=== PATIENT | female | born 1975 | race Caucasian/White ===

== ENCOUNTER 2018-05-11 10:49 | Emergency (ER) | END 2018-05-11 13:46 | disposition home or self-care (01) ==

== ENCOUNTER 2018-08-19 23:12 | Emergency (ER) | payer OTHER ==
[~2018-08-19] VITALS: Ht 170.2 cm; Wt 98.8 kg
[~2018-08-19 23:12] MED LIST: IBUP-1542 PO
[2018-08-19 23:17] VITALS: Ht 170.2 cm; Wt 98.8 kg
[2018-08-20] MEDS ORDERED: PROMETHAZINE/DM (CUP) PO ONE (02:30)
[2018-08-20] MEDS ORDERED: CETI10CA PO (04:18)
[2018-08-20] MEDS ORDERED: ALBU18HF INHALATION (04:18)
[2018-08-20] MEDS ORDERED: BENZ-6 PO (04:18)
--- NOTE | 2018-08-20 04:23 | ERD ---
ER Documentation Chief Complaint Chief Complaint flu-liked symptoms x 3weeks HPI 42-year-old female patient with no severe past medical history presents the ED complaining of a cough that started 3 weeks ago. She reports that she has tried taking ibuprofen, Tylenol, equally lvrf-yzw-uhwtlyy cough medication however has not found relief of her symptoms. Patient also reports that she has some rhinorrhea. Denies any fever, chills, nausea, vomiting, diarrhea, neck stiffness, wheezing. Denies any sick contacts. Denies any recent travel. Denies taking control. Denies smoking, alcohol use, drug use. ROS All systems reviewed and are negative except as per history of present illness. Medications Home Meds Active Scripts Cetirizine Hcl* (Zyrtec*) 10 Mg Capsule, 10 MG PO DAILY, #10 TAB.CHEW Prov:CHRISTOPHER PULIDO PA-C 08/20/18 Albuterol Sulfate* (Ventolin HFA*) 18 Gm Hfa.aer.ad, 2 PUFF INHALATION Q4H, #1 INHALER Prov:CHRISTOPHER PULIDO PA-C 08/20/18 Benzonatate* (Tessalon Perle*) 100 Mg Capsule, 100 MG PO Q8H PRN for COUGH, #20 CAP Prov:CHRISTOPHER PULIDO PA-C 08/20/18 Ibuprofen* (Motrin*) 600 Mg Tab, 600 MG PO Q6, #30 TAB Prov:YARI MARTINEZ PA-C 05/11/18 Allergies Allergies: Coded Allergies: No Known Allergy (Unverified , 08/19/18) PMhx/Soc Medical and Surgical Hx: pt denies Medical Hx, pt denies Surgical Hx Hx Alcohol Use: Yes Hx Substance Use: No Hx Tobacco Use: Yes Smoking Status: Current some day smoker FmHx Family History: No diabetes, No coronary disease Physical Exam Vitals Vital Signs Date Temp Pulse Resp B/P (MAP) Pulse Ox O2 O2 Flow FiO2 Time Delivery Rate 08/19/18 98.8 85 20 100/60 99 23:17 (73) Physical Exam Const: Ohy-qsv-[id number], well-nourished. In no acute distress. Head: Atraumatic, normocephalic Eyes: Normal Conjunctiva without injection. No purulent discharge. PERRL. EOMI ENT: Normal external ear. Ear canal without erythema. Tympanic membrane pearly birch without effusion or bulging. Nasal canal clear with normal turbinates. Moist oropharynx without tonsillar exudates. Non-erythematous pharynx. Uvula midline. No drooling. No trismus. Neck: Full range of motion. No meningismus. No cervical lymphadenopathy. Resp: Clear to auscultation bilaterally. No wheezing, rhonchi, rales, or crackles. No accessory muscle use. No retractions. Cardio: Regular rate and rhythm. No murmurs, rubs or gallops. Abd: Soft, non tender, non distended. Normal bowel sounds. No palpable masses. No rebound tenderness. No guarding. Skin: No petechiae or rashes Back: No midline tenderness. No CVA tenderness. Ext: No cyanosis, or edema. Neur: Awake and alert. Psych: Normal Mood and Affect Results 24 hrs Laboratory Tests Test 08/20/18 02:42 POC Beta HCG, Qualitative NEGATIVE Current Medications Medications Dose Sig/Ruben Start Time Status Last (Trade) Ordered Route PRN Stop Time Admin Dose Reason Admin Promethazine 5 ml ONCE ONCE 08/20/18 DC 08/20/18 HCl/ PO 02:30 08/20/18 02:40 Dextromethorp 02:31 bartlett (Phenergan-Dm ) Procedures/MDM 42-year-old female patient with no significant past medical history presents to ED complaining of cough, rhinorrhea. She is afebrile and nontoxic-appearing. Chest x-ray was ordered to further evaluate that she has had symptoms for 3 weeks. Patient was also given Promethazine DM here in the ED. Patient reports that she has slight relief, for a trial of Tessalon Perles will be prescribed to patient on outpatient basis. Patient has a pulse oxygenation of 99%. Patient is speaking full sentences without any respiratory distress. This patient presents to the ED with symptoms consistent with a viral acute upper respiratory infection. Patient is afebrile and has normal vital signs. Patient's physical exam include lungs which were clear to auscultation and a normal pulse oximetry. There is a low suspicion for a croup, pneumonia, pneumothorax, strep pharyngitis, otitis media, otitis externa, sinusitis, peritonsillar abscess, foreign body aspiration, mastoiditis, retropharyngeal abscess, epiglottitis, meningitis, sepsis or other emergent conditions. Diagnosis: Cough Discharge medications: Zyrtec, Tessalon Perles, Ventolin Follow up with primary care physician in 1-2 days. Instructed patient to return to the ED sooner for any worsening symptoms. Patient's questions were answered. Patient is hemodynamically stable. Patient understood and agreed with discharge plan. Patient discharged stable. Disclaimer: Inadvertent spelling and grammatical errors are likely due to EHR/dictation software use and do not reflect on the overall quality of patient care. Also, please note that the electronic time recorded on this note does not necessarily reflect the actual time of the patient encounter. Departure Diagnosis: Primary Impression: Cough Condition: Stable Patient Instructions: Uri, Viral, No Abx (Adult) Referrals: [facility] YOU HAVE RECEIVED A MEDICAL SCREENING EXAM AND THE RESULTS INDICATE THAT YOU DO NOT HAVE A CONDITION THAT REQUIRES URGENT TREATMENT IN THE EMERGENCY DEPARTMENT. FURTHER EVALUATION AND TREATMENT OF YOUR CONDITION CAN WAIT UNTIL YOU ARE SEEN IN YOUR DOCTORS OFFICE WITHIN THE NEXT 1-2 DAYS. IT IS YOUR RESPONSIBILITY TO MAKE AN APPOINTMENT FOR FOLOW-UP CARE. IF YOU HAVE A PRIMARY DOCTOR --you should call your primary doctor and schedule an appointment IF YOU DO NOT HAVE A PRIMARY DOCTOR YOU CAN CALL OUR PHYSICIAN REFERRAL HOTLINE AT IF YOU CAN NOT AFFORD TO SEE A PHYSICIAN YOU CAN CHOSE FROM THE FOLLOWING [facility] [address] [facility]. [facility] [address] [facility]. [facility] [address] [facility] [facility] [address] [facility] [facility] [address] [facility]. [facility]. [address] [facility] [facility] YOU HAVE RECEIVED A MEDICAL SCREENING EXAM AND THE RESULTS INDICATE THAT YOU DO NOT HAVE A CONDITION THAT REQUIRES URGENT TREATMENT IN THE EMERGENCY DEPARTMENT. FURTHER EVALUATION AND TREATMENT OF YOUR CONDITION CAN WAIT UNTIL YOU ARE SEEN IN YOUR DOCTORS OFFICE WITHIN THE NEXT 1-2 DAYS. IT IS YOUR RESPONSIBILITY TO MAKE AN APPOINTMENT FOR FOLOW-UP CARE. IF YOU HAVE A PRIMARY DOCTOR --you should call your primary doctor and schedule and appointment IF YOU DO NOT HAVE A PRIMARY DOCTOR YOU CAN CALL OUR PHYSICIAN REFERRAL HOTLINE AT . IF YOU CAN NOT AFFORD TO SEE A PHYSICIAN YOU CAN CHOSE FROM THE FOLLOWING [facility] INSTITUTIONS: [facility] [address] [place] [address] [facility] [address] [place], [place] [id number] [place] [address] [address] [place] [address] [facility] URGENT CARE/SPECIALTIES Additional Instructions: Llame al doctor MAANA y janette arlene NAMITA PARA DENTRO DE 2-3 SANCHEZ.Dgale a la secretaria que nosotros le instruimos hacer esta namita.Avise o llame si mohr condicin se empeora antes de la namita. Regresa aqui si peor o no mejor. CHRISTOPHER PULIDO PA-C Aug 20, 2018 04:22
[2018-08-20 04:31] VITALS: BP 132/68; PULSE 74; RESP 20
== END 2018-08-20 04:32 | disposition home or self-care (01) ==
LOC: FTE 23:12
DX: R05 Cough (principal); F17.210 Nicotine dependence, cigarettes, uncomplicated
CPT/HCPCS: 71045; 81025; Z7610

== ENCOUNTER 2018-10-24 18:51 | Emergency (ER) | payer OTHER ==
[~2018-10-24] VITALS: Ht 157.5 cm; Wt 85.1 kg
[~2018-10-24 18:51] MED LIST changes: +ALBU18HF INHALATION; +BENZ-6 PO; +CETI10CA PO
[2018-10-24 19:21] VITALS: Ht 157.5 cm; Wt 85.1 kg
[2018-10-24] MEDS ORDERED: SOD CHLORIDE 0.9% 1,000 ML IV STA (21:27)
[2018-10-24] MEDS ORDERED: ONDANSETRON 4 MG INJ IV STA (21:27)
[2018-10-24] MEDS ORDERED: ONDA8TAB14 PO (22:26)
[2018-10-24] MEDS ORDERED: BISM262O23 PO (22:26)
[2018-10-24] MEDS ORDERED: AZIT500T3 PO (22:26)
--- NOTE | 2018-10-24 22:28 | ERD ---
ER Documentation Chief Complaint Chief Complaint abd pain, vomiting and diarrhea +fever x1 week HPI 42-year-old female presents with left-sided abdominal pain, vomiting diarrhea last week. She may have tactile fevers but no measured temperature. She denies any right-sided abdominal pain, urinary complaints, the diarrhea is watery without blood or mucus. Vomit is nonbilious nonbloody. Patient denies any foreign travel or suspect food or sick contacts. ROS All systems reviewed and are negative except as per history of present illness. Medications Home Meds Active Scripts Bismuth Subsalicylate* (Pepto-Bismol*) 262 Mg/15 Ml Oral.susp, 15 ML PO Q3H PRN for DIARRHEA for 4 Days, ML Prov:AZRA CHINCHILLA MD 10/24/18 Ondansetron (Ondansetron Odt) 8 Mg Tab.rapdis, 8 MG PO Q6H PRN for NAUSEA AND/OR VOMITING, #6 TAB Prov:AZRA CHINCHILLA MD 10/24/18 Azithromycin* (Zithromax*) 500 Mg Tablet, 500 MG PO DAILY for 3 Days, TAB Prov:AZRA CHINCHILLA MD 10/24/18 Cetirizine Hcl* (Zyrtec*) 10 Mg Capsule, 10 MG PO DAILY, #10 TAB.CHEW Prov:CHRISTOPHER PULIDO PA-C 08/20/18 Albuterol Sulfate* (Ventolin HFA*) 18 Gm Hfa.aer.ad, 2 PUFF INHALATION Q4H, #1 INHALER Prov:CHRISTOPHER PULIDO PA-C 08/20/18 Benzonatate* (Tessalon Perle*) 100 Mg Capsule, 100 MG PO Q8H PRN for COUGH, #20 CAP Prov:CHRISTOPHER PULIDO PA-C 08/20/18 Ibuprofen* (Motrin*) 600 Mg Tab, 600 MG PO Q6, #30 TAB Prov:YARI MARTINEZ PA-C 05/11/18 Allergies Allergies: Coded Allergies: No Known Allergy (Unverified , 10/24/18) PMhx/Soc Medical and Surgical Hx: pt denies Medical Hx, pt denies Surgical Hx Hx Alcohol Use: Yes Hx Substance Use: No Hx Tobacco Use: Yes Smoking Status: Current every day smoker FmHx Family History: No diabetes, No coronary disease, No other Physical Exam Vitals Vital Signs Date Temp Pulse Resp B/P (MAP) Pulse Ox O2 O2 Flow FiO2 Time Delivery Rate 10/24/18 98.5 70 16 124/62 99 19:21 (82) Physical Exam Const: No acute distress Head: Atraumatic Eyes: Normal Conjunctiva ENT: Normal External Ears, Nose and Mouth. Neck: Full range of motion. No meningismus. Resp: Clear to auscultation bilaterally Cardio: Regular rate and rhythm, no murmurs Abd: Soft, patient points to the left epigastric or mid abdominal area but non tender, non distended. Normal bowel sounds Skin: No petechiae or rashes Back: No midline or flank tenderness Ext: No cyanosis, or edema Neur: Awake and alert Psych: Normal Mood and Affect Result Diagram: 10/24/18214410/24/182144 Results 24 hrs Laboratory Tests Test 10/24/18 21:45 10/24/18 21:49 White Blood Count 6.0 10^3/ul Red Blood Count 4.81 10^6/ul Hemoglobin 13.2 g/dl Hematocrit 41.6 % Mean Corpuscular Volume 86.5 fl Mean Corpuscular Hemoglobin 27.4 pg Mean Corpuscular Hemoglobin Concent 31.7 g/dl Red Cell Distribution Width 14.2 % Platelet Count 344 10^3/UL Mean Platelet Volume 9.9 fl Immature Granulocytes % 0.200 % Neutrophils % 32.7 % Lymphocytes % 52.8 % Monocytes % 11.1 % Eosinophils % 2.7 % Basophils % 0.5 % Nucleated Red Blood Cells % 0.0 /100WBC Immature Granulocytes # 0.010 10^3/ul Neutrophils # 2.0 10^3/ul Lymphocytes # 3.2 10^3/ul Monocytes # 0.7 10^3/ul Eosinophils # 0.2 10^3/ul Basophils # 0.0 10^3/ul Nucleated Red Blood Cells # 0.0 10^3/ul Urine Color COLORLESS Urine Clarity CLEAR Urine pH 6.0 Urine Specific Pearce 1.001 Urine Ketones NEGATIVE mg/dL Urine Nitrite NEGATIVE mg/dL Urine Bilirubin NEGATIVE mg/dL Urine Urobilinogen NEGATIVE mg/dL Urine Leukocyte Esterase NEGATIVE Blair/ul Urine Microscopic RBC 0 /HPF Urine Microscopic WBC 0 /HPF Urine Bacteria FEW /HPF Urine Hemoglobin 1+ mg/dL Urine Glucose NEGATIVE mg/dL Urine Total Protein NEGATIVE mg/dl Sodium Level 140 mmol/L Potassium Level 3.5 mmol/L Chloride Level 105 mmol/L Carbon Dioxide Level 24 mmol/L Anion Gap 11 Blood Urea Nitrogen 12 mg/dl Creatinine 0.68 mg/dl Est Glomerular Filtrat Rate mL/min > 60 mL/min Glucose Level 95 mg/dl Calcium Level 9.1 mg/dl Total Bilirubin 0.2 mg/dl Direct Bilirubin 0.00 mg/dl Indirect Bilirubin 0.2 mg/dl Aspartate Amino Transf (AST/SGOT) 26 IU/L Alanine Aminotransferase (ALT/SGPT) 35 IU/L Alkaline Phosphatase 70 IU/L Total Protein 8.0 g/dl Albumin 4.3 g/dl Globulin 3.70 g/dl Albumin/Globulin Ratio 1.16 Lipase 62 U/L POC Beta HCG, Qualitative NEGATIVE Current Medications Medications Dose Sig/Ruben Start Time Status Last (Trade) Ordered Route PRN Stop Time Admin Dose Reason Admin Sodium 1,000 ml @ Q1H STAT 10/24/18 DC 10/24/18 Chloride 1,000 mls/hr IV 21:27 21:44 10/24/18 22:26 Ondansetron 4 mg ONCE STAT 10/24/18 DC 10/24/18 HCl (Zofran IV 21:27 21:44 Inj) 10/24/18 21:28 Procedures/MDM Patient presents with vomiting diarrhea for last week. CBC and CMP lipase normal urine shows no significant abnormalities. HCG negative. Patient may have prolonged viral diarrhea which would be self-limited but given the duration will treat empirically with Zithromax, Pepto-Bismol, Zofran, instructions for fluids, Tylenol, primary care follow-up and return precautions for worsening pain, fevers, vomiting despite treatment, new or worsening symptoms. The patient was stable with no new complaints during the ER course. Clinically, there is no current evidence to suggest meningitis, sepsis, acute abdomen, pneumonia, stroke, acute coronary syndrome, pulmonary embolism, aortic dissection or any other emergent condition appearing to require further ev aluation or hospitalization. Patient counseled regarding my diagnostic impression and care plan. Prior to discharge all questions answered. Pt agrees with treatment plan and understands strict return precautions. Pt is instructed to follow up with primary care provider within 24-48 hours. Precautionary instructions provided including instructions to return to the ER if not improving or for any worsening or changing symptoms or concerns. Departure Diagnosis: Primary Impression: Nausea, vomiting and diarrhea Condition: Stable Patient Instructions: Vomiting And Diarrhea, Nonspecific (Adult) Additional Instructions: Examinations normal today. May be viral illness but will treat for infection given the duration's. Recheck for new or worsening symptoms with primary care doctor. Okay to take Tylenol for pain. AZRA CHINCHILLA MD Oct 24, 2018 22:28
[2018-10-24 22:39] VITALS: BP 109/54; PULSE 79; RESP 20
== END 2018-10-24 22:41 | disposition home or self-care (01) ==
LOC: FTE 18:51
DX: R11.2 Nausea with vomiting, unspecified (principal); R19.7 Diarrhea, unspecified; F17.210 Nicotine dependence, cigarettes, uncomplicated
CPT/HCPCS: 36415; 80053; 81001; 81025; 83690; 85025; 96361; 96374; J2405; J7030; Z7502